=== PATIENT | female | born 2000 | race Caucasian/White ===

== ENCOUNTER 2023-05-27 10:06 | Day surgery (SDC) | payer OTHER ==
[~2023-05-27] VITALS: Ht 165.1 cm; Wt 63.9 kg
[~2023-05-27 10:06] MED LIST: LR 1,000 ML IV SCH; Ondansetron 4 MG/2 ML VIAL IV PRN
[2023-05-27 10:31] VITALS: BP 105/81; PULSE 73; TEMP 97.4
[2023-05-27] MEDS ORDERED: MIRENA52 MG IY (10:37)
[2023-05-27 11:48] VITALS: BP 99/58; PULSE 62; TEMP 97.3
[2023-05-27 12:04] VITALS: BP 103/67; PULSE 58
--- NOTE | 2023-05-27 12:40 | NUR ---
1148-Pt arrived via cart to [facility] bay [facility] , pt ambulated with assistance to recliner. Warm blanket provided. Vital signs taken, vss. Pt denies nausea or pain at this time. Report obtained from ABIGAIL OVALLE. Pt offered po intake at this time. Update provided to patient. 1153-Pt tolerating po intake well, denies complaints. VSS. 1200-Provider at bedside, procedure and plan of care reviewed, questions invited. 1215-VSS. Discharge instructions reviewed with pt, questions invited. IV site discontinued, tip intact. Pressure held and bandage applied. Pt dressed into personal clothing. 1225-Pt discharged home to [facility] via wheelchair, accompanied by friend. All belongings and discharge instructions sent with pt.
== END 2023-05-27 12:25 | disposition home or self-care (01) ==
LOC: SDCO 10:06
DX: K59.09 Other constipation (principal); K92.1 Melena; R14.0 Abdominal distension (gaseous); K64.4 Residual hemorrhoidal skin tags
CPT/HCPCS: J2704; J7120